=== PATIENT | female | born 1955 | race Hispanic/Latino ===

== ENCOUNTER 2024-12-09 17:33 | Inpatient (IN) | payer MEDICARE ==
[~2024-12-09] VITALS: Ht 167.6 cm; Wt 74.8 kg
[2024-12-09 17:33] VITALS: TEMP 98.6
[2024-12-09 18:02] LABS: BASOPHILS # (AUTO) 0.1 (0.0-0.1); BASOPHILS % 0.8 % (0.0-1.0); EOSINOPHILS % 0.2 % (0.0-6.0); HEMATOCRIT 36.9 % (34.2-44.1); HEMOGLOBIN 12.1 g/dL (12.0-16.0); LYMPHOCYTES # (AUTO) 1.3 (1.0-3.2); LYMPHOCYTES % 14.5 % (18.0-39.1); MEAN CORPUSCULAR HEMOGLOBIN 26.1 pg (28-32); MEAN CORPUSCULAR HGB CONC 32.8 g/dL (31-35); MEAN CORPUSCULAR VOLUME 79.7 fL (81-99); MONOCYTES # (AUTO) 0.7 (0.2-0.8); MONOCYTES % 7.4 % (4.4-11.3); NEUTROPHILS # (AUTO) 6.5 (2.1-6.9); NEUTROPHILS % 73.4 % (38.7-80.0); PLATELET COUNT 333 x10e3/uL (140-360); RED BLOOD COUNT 4.63 x10e6/uL (3.6-5.1); RED CELL DISTRIBUTION WIDTH 14.5 % (11.7-14.4); WHITE BLOOD COUNT 8.84 x10e3/uL (4.8-10.8)
[2024-12-09 18:13] LABS: ALBUMIN 3.5 g/dL (3.5-5.0); ALBUMIN/GLOBULIN RATIO 0.7 (0.8-2.0); ANION GAP 21.4 mmol/L (8-16); BILIRUBIN,TOTAL 0.7 mg/dL (0.2-1.2); CALCIUM 9.4 mg/dL (8.4-10.2); CREATININE, SERUM 1.37 mg/dL (0.57-1.11); TOTAL PROTEIN 8.4 g/dL (6.5-8.1)
[2024-12-09 18:17] LABS: POTASSIUM 3.4 mmol/L (3.5-5.1)
[2024-12-09 18:19] LABS: TROPONIN I 0.009 ng/mL (0-0.300)
[2024-12-09] MEDS: SODIUM CHLORIDE 0.9% 1000ML 1,000 ML IV STA (18:28)
[2024-12-09] MEDS: ACETAMINOPHEN 325 MG TAB PO STA (18:29)
[2024-12-09] MEDS: LEVOFLOXACIN 750MG/D5W 150ML 150 ML IV SCH (18:30)
[2024-12-09] MEDS ORDERED: IOPAMIDOL 370 MG/ML 100 ML INFUS..BTL INJ ONE (18:31)
[2024-12-09] MEDS: ALBUTEROL/IPRATROPIUM 3 ML NEB NEB STA (18:34)
[2024-12-09 18:40] VITALS: PULSE 102; RESP 16; O2SAT 96
[2024-12-09 18:58] LABS: CORONAVIRUS COVID-19 AG NEGATIVE (NEGATIVE); INFLUENZA A AG NEGATIVE (NEGATIVE); INFLUENZA B AG NEGATIVE (NEGATIVE)
[2024-12-09] MEDS: METHYLPREDNISOLONE SOD SUCC 40 MG/ML VIAL 1ML IV SCH (19:03)
[2024-12-09 19:13] VITALS: PULSE 97; RESP 20
[2024-12-09] MEDS ORDERED: LYRICA75 MG PO (21:31)
[2024-12-09] MEDS ORDERED: ATIVAN1 MG PO (21:31)
[2024-12-09] MEDS ORDERED: NEXIUM40 MG PO (21:36)
[2024-12-09] MEDS: Morphine 2mg Syringe 2 MG/ML SYR IV PRN (21:42)
[2024-12-09] MEDS: ONDANSETRON HCL INJ 2MG/ML 2ML 2 MG/ML VIAL IV PRN (21:42)
[2024-12-09] MEDS: SODIUM CHLORIDE 0.9% 1000ML 1,000 ML IV SCH (21:43)
[2024-12-09 21:54] VITALS: BP 127/90; PULSE 63; RESP 18; TEMP 97.8; O2SAT 97
[2024-12-09 22:00] VITALS: BP 127/90; PULSE 63; RESP 18; TEMP 97.8; O2SAT 97
[2024-12-09] MEDS: ALBUTEROL/IPRATROPIUM 3 ML NEB NEB SCH (23:20)
[2024-12-09 23:21] VITALS: PULSE 83; RESP 18; O2SAT 94
[2024-12-10] VITALS (12 sets, daily range): BP systolic 104–168; BP diastolic 72–97; PULSE 71–101; RESP 16–21; TEMP 97.6–99.3; O2SAT 94–98
[2024-12-10] MEDS ORDERED: DOCUSATE SODIUM 100 MG CAP PO PRN (01:45)
[2024-12-10] MEDS ORDERED: GUAIFENESIN/DEXTROMETHORPHAN LIQD 5 ML UDC PO PRN (01:45)
[2024-12-10] MEDS ORDERED: MELATONIN 3 MG TAB PO PRN (01:45)
[2024-12-10] MEDS ORDERED: ACETAMINOPHEN 325 MG TAB PO PRN (01:45)
[2024-12-10] MEDS ORDERED: HYDRALAZINE HCL 20 MG/ML VIAL IV PRN (01:45)
[2024-12-10 04:49] LABS: BASOPHILS % 0.2 % (0.0-1.0); HEMATOCRIT 28.1 % (34.2-44.1); HEMOGLOBIN 9.3 g/dL (12.0-16.0); LYMPHOCYTES # (AUTO) 0.5 (1.0-3.2); MEAN CORPUSCULAR HEMOGLOBIN 26.9 pg (28-32); MEAN CORPUSCULAR HGB CONC 33.1 g/dL (31-35); MEAN CORPUSCULAR VOLUME 81.2 fL (81-99); MONOCYTES # (AUTO) 0.2 (0.2-0.8); MONOCYTES % 3.4 % (4.4-11.3); NEUTROPHILS # (AUTO) 5.1 (2.1-6.9); PLATELET COUNT 236 x10e3/uL (140-360); RED BLOOD COUNT 3.46 x10e6/uL (3.6-5.1); RED CELL DISTRIBUTION WIDTH 14.6 % (11.7-14.4); WHITE BLOOD COUNT 6.12 x10e3/uL (4.8-10.8)
[2024-12-10] MEDS ORDERED: EXCEDRIN EXTRA1 EAC1 PO (04:57)
[2024-12-10 05:18] LABS: ALBUMIN 2.7 g/dL (3.5-5.0); ALBUMIN/GLOBULIN RATIO 0.7 (0.8-2.0); ANION GAP 14.9 mmol/L (8-16); BILIRUBIN,TOTAL 0.3 mg/dL (0.2-1.2); CALCIUM 8.4 mg/dL (8.4-10.2); CREATININE, SERUM 0.99 mg/dL (0.57-1.11); POTASSIUM 3.9 mmol/L (3.5-5.1); TOTAL PROTEIN 6.4 g/dL (6.5-8.1)
[2024-12-10 05:26] LABS: TROPONIN I 0.007 ng/mL (0-0.300)
[2024-12-10] MEDS: MULTIVITAMINS/MINERALS TAB PO SCH (08:26)
[2024-12-10] MEDS: LORAZEPAM 1 MG TAB PO SCH (08:26)
[2024-12-10] MEDS: LORAZEPAM 0.5 MG TAB PO SCH (08:36)
[2024-12-10] MEDS: ALBUTEROL/IPRATROPIUM 3 ML NEB NEB PRN (08:50)
[2024-12-10] MEDS ORDERED: PANTOPRAZOLE SOD 40 MG TABEC PO SCH (09:00)
[2024-12-10] MEDS: PREGABALIN 75 MG CAP PO SCH (12:15)
[2024-12-10] MEDS: IBUPROFEN 600 MG TAB PO PRN (12:15)
[2024-12-10] MEDS: ENOXAPARIN SOD INJ 40 MG/0.4 ML SYR SC SCH (16:41)
[2024-12-10] MEDS: HYDROMORPHONE 1MG/1ML INJ IV PRN (17:33)
[2024-12-10] MEDS: METHYLPREDNISOLONE SOD SUCC 40 MG/ML VIAL 1ML IV SCH (17:34)
[2024-12-10] MEDS: BUDESONIDE/FORMOTEROL 160/4.5MCG INHALER INH SCH (19:48)
[2024-12-10] MEDS ORDERED: HOME MEDICATION--PATIENTS OWN PO PRN (20:00)
[2024-12-10] MEDS: ACETAMINOPHEN/ASPIRIN/CAFFEINE 1 EA TAB PO PRN (20:24)
[2024-12-10] MEDS: MAGNESIUM/ALUMINUM/SIMETHICONE 30 ML UDC PO PRN (20:49)
[2024-12-10] MEDS ORDERED: AMITRIPTYLINE H25 MG PO (20:58)
[2024-12-11] VITALS (8 sets, daily range): BP systolic 136–177; BP diastolic 80–99; PULSE 80–103; RESP 18–20; TEMP 97.2–98.3; O2SAT 96–100
[2024-12-11 06:09] LABS: % IRON SATURATION 40 % (15-50); IRON 101 ug/dL (50-170); TOTAL IRON BINDING CAPACITY 255 ug/dL (261-478); TRANSFERRIN 182 mg/dL (180-382)
[2024-12-11 06:37] LABS: CREATINE KINASE 43 IU/L (29-168)
[2024-12-11 06:58] LABS: TROPONIN I < 0.001 ng/mL (0-0.300)
[2024-12-11] MEDS: METOCLOPRAMIDE HCL 10 MG/2ML VIAL IV SCH (07:30)
[2024-12-11] MEDS: METHYLPREDNISOLONE SOD SUCC 40 MG/ML VIAL 1ML IV SCH (09:00)
[2024-12-11] MEDS: Morphine 2mg Syringe 2 MG/ML SYR IV PRN (12:28)
[2024-12-11] MEDS ORDERED: PROPOFOL IV EMULSION 10 MG/ML 20 ML VIAL ONE (16:16)
[2024-12-11] MEDS ORDERED: LIDOCAINE HCL 2% LOCAL INJ 5 ML SDV VIAL INJ ONE (16:16)
[2024-12-11] MEDS ORDERED: FENTANYL CITRATE/PF 100MCG/2 ML INJ ONE (16:27)
[2024-12-11] MEDS ORDERED: ONDANSETRON HCL INJ 2MG/ML 2ML 2 MG/ML VIAL ONE (16:43)
[2024-12-11] MEDS ORDERED: METOCLOPRAMIDE HCL 10 MG/2ML VIAL ONE (16:43)
[2024-12-11] MEDS ORDERED: HYDRALAZINE HCL 20 MG/ML VIAL ONE (16:56)
[2024-12-11] MEDS: LORAZEPAM 0.5 MG TAB PO SCH (21:36)
[2024-12-11] MEDS: PREGABALIN 75 MG CAP PO SCH (21:37)
[2024-12-11] MEDS: AMITRIPTYLINE HCL 25 MG TAB PO SCH (21:37)
[2024-12-12] VITALS (9 sets, daily range): BP systolic 131–162; BP diastolic 75–101; PULSE 89–111; RESP 16–20; TEMP 98.1–98.5; O2SAT 95–100
[2024-12-12 16:02] LABS: BASOPHILS % 0.3 % (0.0-1.0); HEMATOCRIT 35.4 % (34.2-44.1); HEMOGLOBIN 11.3 g/dL (12.0-16.0); LYMPHOCYTES # (AUTO) 0.7 (1.0-3.2); LYMPHOCYTES % 7.7 % (18.0-39.1); MEAN CORPUSCULAR HEMOGLOBIN 26.3 pg (28-32); MEAN CORPUSCULAR HGB CONC 31.9 g/dL (31-35); MEAN CORPUSCULAR VOLUME 82.3 fL (81-99); MONOCYTES # (AUTO) 0.4 (0.2-0.8); MONOCYTES % 3.7 % (4.4-11.3); NEUTROPHILS # (AUTO) 7.7 (2.1-6.9); NEUTROPHILS % 80.4 % (38.7-80.0); PLATELET COUNT 348 x10e3/uL (140-360); WHITE BLOOD COUNT 9.52 x10e3/uL (4.8-10.8)
[2024-12-12 16:51] LABS: FREE T4 (FREE THYROXINE) 1.23 ng/dL (0.8-1.8); FREE THYROXINE INDEX 2.4955 (1.4-3.8); T3 UPTAKE 26.95 % (22.5-37.0); THYROID STIMULATING HORMONE 2.84 uIU/mL (0.350-4.940)
[2024-12-12 16:54] LABS: ALBUMIN 3.4 g/dL (3.5-5.0); ALBUMIN/GLOBULIN RATIO 0.8 (0.8-2.0); ANION GAP 17.9 mmol/L (8-16); BILIRUBIN,TOTAL 0.3 mg/dL (0.2-1.2); CREATININE, SERUM 1.29 mg/dL (0.57-1.11); POTASSIUM 3.9 mmol/L (3.5-5.1); TOTAL PROTEIN 7.5 g/dL (6.5-8.1)
[2024-12-12 17:06] LABS: T4 (THYROXINE) 9.26 ug/dL (4.5-10.9)
[2024-12-13] VITALS (9 sets, daily range): BP systolic 96–134; BP diastolic 47–88; PULSE 80–121; RESP 17–20; TEMP 97.8–98.8; O2SAT 96–100
[2024-12-13] MEDS: SUCRALFATE 1 GM/10 ML SUSP PO ONE (00:49)
[2024-12-13] MEDS: CYANOCOBALAMIN INJ 1,000 MCG/ML VIAL IM ONE (00:49)
[2024-12-13 07:53] LABS: BASOPHILS % 0.4 % (0.0-1.0); EOSINOPHILS % 0.1 % (0.0-6.0); HEMATOCRIT 31.1 % (34.2-44.1); HEMOGLOBIN 10.2 g/dL (12.0-16.0); LYMPHOCYTES % 26.3 % (18.0-39.1); MEAN CORPUSCULAR HEMOGLOBIN 26.7 pg (28-32); MEAN CORPUSCULAR HGB CONC 32.8 g/dL (31-35); MEAN CORPUSCULAR VOLUME 81.4 fL (81-99); MONOCYTES # (AUTO) 0.6 (0.2-0.8); MONOCYTES % 8.2 % (4.4-11.3); NEUTROPHILS # (AUTO) 4.2 (2.1-6.9); NEUTROPHILS % 56.4 % (38.7-80.0); PLATELET COUNT 296 x10e3/uL (140-360); RED BLOOD COUNT 3.82 x10e6/uL (3.6-5.1); RED CELL DISTRIBUTION WIDTH 14.9 % (11.7-14.4); WHITE BLOOD COUNT 7.53 x10e3/uL (4.8-10.8)
[2024-12-13 08:13] LABS: ANION GAP 16.5 mmol/L (8-16); CALCIUM 8.2 mg/dL (8.4-10.2); CREATININE, SERUM 1.21 mg/dL (0.57-1.11); POTASSIUM 3.5 mmol/L (3.5-5.1)
[2024-12-13] MEDS: SUCRALFATE 1 GM/10 ML SUSP PO SCH (09:46)
[2024-12-13] MEDS: METOCLOPRAMIDE HCL 10 MG/2ML VIAL IV SCH (09:46)
[2024-12-13] MEDS: CYANOCOBALAMIN INJ 1,000 MCG/ML VIAL IM SCH (09:47)
[2024-12-13 12:52] LABS: LYMPHOCYTES % (MANUAL) 23 % (19-48); METAMYELOCYTES % (MANUAL) 1 % (0-0); MONOCYTES % (MANUAL) 5 % (3.4-9.0); NEUTROPHILS % (MANUAL) 68 % (40-74); PLATELET ESTIMATE ADEQUATE; PLATELET MORPHOLOGY COMMENT NORMAL; RBC MORPHOLOGY COMMENT NORMAL; REACTIVE LYMPHOCYTES 3
[2024-12-13] MEDS: LEVOFLOXACIN 500 MG TAB PO SCH (17:22)
[2024-12-14] VITALS (12 sets, daily range): BP systolic 102–150; BP diastolic 77–97; PULSE 84–99; RESP 16–20; TEMP 96.8–98.2; O2SAT 94–100
[2024-12-14 10:12] LABS: ENDOMYSIAL ANTIBODIES, IGA Negative (Negative)
[2024-12-14 11:19] LABS: IMMUNOGLOBULIN A 259 mg/dL (87-352); TISSUE TRANSGLUTAMINASE IGA AB <2 U/mL (0-3)
[2024-12-15 05:16] LABS: BASOPHILS % 0.5 % (0.0-1.0); EOSINOPHILS % 0.2 % (0.0-6.0); HEMATOCRIT 30.4 % (34.2-44.1); LYMPHOCYTES # (AUTO) 1.6 (1.0-3.2); LYMPHOCYTES % 19.3 % (18.0-39.1); MEAN CORPUSCULAR HEMOGLOBIN 26.5 pg (28-32); MEAN CORPUSCULAR HGB CONC 32.9 g/dL (31-35); MEAN CORPUSCULAR VOLUME 80.4 fL (81-99); MONOCYTES # (AUTO) 0.4 (0.2-0.8); MONOCYTES % 4.6 % (4.4-11.3); NEUTROPHILS % 71.8 % (38.7-80.0); PLATELET COUNT 294 x10e3/uL (140-360); RED BLOOD COUNT 3.78 x10e6/uL (3.6-5.1); RED CELL DISTRIBUTION WIDTH 15.2 % (11.7-14.4)
[2024-12-15 05:49] LABS: ALBUMIN 2.9 g/dL (3.5-5.0); ANION GAP 14.8 mmol/L (8-16); BILIRUBIN,TOTAL 0.2 mg/dL (0.2-1.2); CREATININE, SERUM 0.86 mg/dL (0.57-1.11); POTASSIUM 3.8 mmol/L (3.5-5.1); TOTAL PROTEIN 5.8 g/dL (6.5-8.1)
[2024-12-15 06:12] LABS: THYROID STIMULATING HORMONE 3.525 uIU/mL (0.350-4.940)
[2024-12-15] MEDS ORDERED: SYMBICORT 16010.2 GM INH (07:14)
[2024-12-15] MEDS ORDERED: PANTOPRAZOLE SO40 MG PO (07:15)
[2024-12-15] MEDS ORDERED: LEVOFLOXACIN250 MG PO (07:17)
[2024-12-15 07:30] VITALS: PULSE 88; RESP 18; O2SAT 97
[2024-12-15 08:00] VITALS: BP 150/97; PULSE 88; RESP 18; TEMP 97.9; O2SAT 97
[2024-12-16 15:12] LABS: RHEUMATOID FACTOR <10.0 IU/mL (<14.0)
[2024-12-17 14:17] LABS: CYCLIC CITRULLINATED PEPTID AB 9 units (0-19)
== END 2024-12-15 12:00 | disposition home or self-care (01) | DRG 191 ==
LOC: ER 17:57 → ERHOLD 19:48 → MED/SURG 21:06 → MED/SURG2 12-13 12:27
PROVIDERS: ADMIT Internal Medicine; ATTEND Internal Medicine
PROC: 0DB68ZX Excision of Stomach, Via Natural or Artificial Opening Endoscopic, Diagnostic (ICD-10-PCS; 2024-12-11)
PROC: 0DB78ZX Excision of Stomach, Pylorus, Via Natural or Artificial Opening Endoscopic, Diagnostic (ICD-10-PCS; 2024-12-11)
PROC: 0DB98ZX Excision of Duodenum, Via Natural or Artificial Opening Endoscopic, Diagnostic (ICD-10-PCS; 2024-12-11)
PROC: 0D758ZZ Dilation of Esophagus, Via Natural or Artificial Opening Endoscopic (ICD-10-PCS; principal; 2024-12-11 16:23)
PROC: 0DB18ZX Excision of Upper Esophagus, Via Natural or Artificial Opening Endoscopic, Diagnostic (ICD-10-PCS; 2024-12-11 16:23)
DX: J47.1 Bronchiectasis with (acute) exacerbation (principal); J44.0 Chronic obstructive pulmonary disease with (acute) lower respiratory infection; R64 Cachexia; J90 Pleural effusion, not elsewhere classified; J18.9 Pneumonia, unspecified organism; R13.10 Dysphagia, unspecified; M25.412 Effusion, left shoulder; K21.00 Gastro-esophageal reflux disease with esophagitis, without bleeding; K29.70 Gastritis, unspecified, without bleeding; D64.9 Anemia, unspecified; G43.909 Migraine, unspecified, not intractable, without status migrainosus; M06.9 Rheumatoid arthritis, unspecified; M48.00 Spinal stenosis, site unspecified; M79.7 Fibromyalgia; E04.9 Nontoxic goiter, unspecified; F41.9 Anxiety disorder, unspecified; Z11.52 Encounter for screening for COVID-19; K52.9 Noninfective gastroenteritis and colitis, unspecified; E66.9 Obesity, unspecified; Z68.26 Body mass index [BMI] 26.0-26.9, adult; Q40.8 Other specified congenital malformations of upper alimentary tract; Z85.850 Personal history of malignant neoplasm of thyroid; Z90.49 Acquired absence of other specified parts of digestive tract; Z90.710 Acquired absence of both cervix and uterus; Z88.0 Allergy status to penicillin; Z88.1 Allergy status to other antibiotic agents; Z88.8 Allergy status to other drugs, medicaments and biological substances; Z87.891 Personal history of nicotine dependence
CPT/HCPCS: 36415; 43239; 43450; 70450; 71260; 76536; 80048; 80053; 82550; 82607; 82746; 82784; 83516; 83540; 83605; 83690; 83880; 84436; 84439; 84443; 84466; 84479; 84484; 85025; 85045; 86140; 86200; 86256; 86376; 86431; 87040; 87070; 87186; 87205; 88112; 88305; 88312; 93005; 93306; 94640; 94664; 94799; 99252; 99284; J0360; J1171; J1650; J2003; J2270; J2405; J2470; J2765; J2919; J3420; J7030; Q9967

== ENCOUNTER 2024-12-18 17:23 | Emergency (ER) | payer MEDICARE ==
[~2024-12-18] VITALS: Ht 167.6 cm; Wt 74.8 kg
[~2024-12-18 17:23] MED LIST: AMITRIPTYLINE H25 MG PO; ATIVAN1 MG PO; EXCEDRIN EXTRA1 EAC1 PO; LEVOFLOXACIN250 MG PO; LYRICA75 MG PO; NEXIUM40 MG PO; PANTOPRAZOLE SO40 MG PO; SYMBICORT 16010.2 GM INH
[2024-12-18 17:50] VITALS: PULSE 89; RESP 18; TEMP 98.6
[2024-12-18 18:59] LABS: BASOPHILS # (AUTO) 0.1 (0.0-0.1); BASOPHILS % 0.5 % (0.0-1.0); HEMATOCRIT 31.4 % (34.2-44.1); HEMOGLOBIN 10.1 g/dL (12.0-16.0); LYMPHOCYTES # (AUTO) 1.7 (1.0-3.2); LYMPHOCYTES % 16.4 % (18.0-39.1); MEAN CORPUSCULAR HEMOGLOBIN 26.2 pg (28-32); MEAN CORPUSCULAR HGB CONC 32.2 g/dL (31-35); MEAN CORPUSCULAR VOLUME 81.6 fL (81-99); MONOCYTES # (AUTO) 0.6 (0.2-0.8); MONOCYTES % 5.8 % (4.4-11.3); NEUTROPHILS # (AUTO) 7.9 (2.1-6.9); NEUTROPHILS % 76.6 % (38.7-80.0); PLATELET COUNT 357 x10e3/uL (140-360); RED BLOOD COUNT 3.85 x10e6/uL (3.6-5.1); RED CELL DISTRIBUTION WIDTH 15.9 % (11.7-14.4); WHITE BLOOD COUNT 10.32 x10e3/uL (4.8-10.8)
[2024-12-18 19:14] LABS: ALBUMIN 3.5 g/dL (3.5-5.0); ANION GAP 16.5 mmol/L (8-16); BILIRUBIN,TOTAL 0.2 mg/dL (0.2-1.2); CALCIUM 8.3 mg/dL (8.4-10.2); POTASSIUM 3.5 mmol/L (3.5-5.1)
[2024-12-18 19:21] LABS: TROPONIN I 0.008 ng/mL (0-0.300)
[2024-12-18] MEDS: SODIUM CHLORIDE 0.9% 1000ML 1,000 ML IV STA (20:11)
[2024-12-18] MEDS: KETOROLAC TROMETHAMINE 30 MG/ML VIAL IV STA (20:13)
[2024-12-18 21:02] VITALS: BP 134/84; PULSE 78; RESP 18; TEMP 98.7; O2SAT 98
== END 2024-12-18 21:07 | disposition home or self-care (01) ==
LOC: ER 17:48
DX: R60.9 Edema, unspecified (principal); R26.2 Difficulty in walking, not elsewhere classified; R53.1 Weakness; J45.909 Unspecified asthma, uncomplicated; M79.7 Fibromyalgia
CPT/HCPCS: 36415; 71045; 80053; 82550; 83690; 83880; 84484; 85025; 99284; J1885; J7030